=== PATIENT | female | born 1970 | race Two or more races ===

== ENCOUNTER 2016-07-23 20:13 | Emergency (ER) | payer OTHER ==
[2016-07-23] MEDS ORDERED: ACETAMINOPHEN 500 MG TABLET ONE (22:10)
[2016-07-23] MEDS ORDERED: IBUPROFEN 600 MG TABLET ONE (22:11)
[2016-07-23] MEDS ORDERED: ONDANSETRON 4 MG ODT TAB ONE (22:11)
== END 2016-07-23 22:22 | disposition home or self-care (01) ==
LOC: ED 20:13
DX: J06.9 Acute upper respiratory infection, unspecified (principal); E66.9 Obesity, unspecified; J45.909 Unspecified asthma, uncomplicated; Z79.899 Other long term (current) drug therapy
CPT/HCPCS: 87804; 99283 ×2; A9270 ×3